=== PATIENT | male | born 2000 | race Hispanic/Latino ===

== ENCOUNTER 2025-03-30 01:42 | Emergency (ER) | payer OTHER ==
[~2025-03-30] VITALS: Ht 170.2 cm; Wt 86.4 kg
[2025-03-30 02:14] LABS: VENOUS BASE EXCESS -1.9 (-2.0-2.0); VENOUS HCO3 23.5 MMOL/L (23.0-27.0); VENOUS O2 SATURATION 93.6 % (60.0-80.0); VENOUS PARTIAL PRESSURE CO2 42.3 mmHg (38.0-50.0); VENOUS PARTIAL PRESSURE O2 69.9 mmHg (30.0-50.0); VENOUS PH 7.362 UNITS (7.330-7.430); VENOUS STANDARD HCO3 22.8 MMOL/L; VENOUS TOTAL CO2 24.8 MMOL/L (24.0-28.0)
[2025-03-30 02:21] LABS: BASO # 0.1 10^3/uL (0.0-0.2); BASO % 0.5 % (0.0-1.0); EOS # 0.2 10^3/uL (0.0-0.5); EOS % 2.5 % (0.0-3.0); LYMPH # 2.2 10^3/uL (1.5-5.0); LYMPH % 22.3 % (24.0-44.0); MONO # 0.7 10^3/uL (0.0-0.8); MONO % 7.4 % (2.0-8.0); NEUTROPHILS # 6.4 10^3/uL (1.5-8.5); NEUTROPHILS % 67.0 % (36.0-66.0); PLATELET COUNT, AUTOMATED 326 10^3/uL (150-450)
[2025-03-30 02:37] LABS: PHENCYCLIDINE URINE NEGATIVE (NEGATIVE)
[2025-03-30 02:38] LABS: AMPHETAMINES LEVEL URINE NEGATIVE (NEGATIVE); BARBITURATES URINE NEGATIVE (NEGATIVE); BENZODIAZEPINES URINE NEGATIVE (NEGATIVE); CANNABINOIDS URINE NEGATIVE (NEGATIVE); COCAINE METABOLITE URINE NEGATIVE (NEGATIVE); METHADONE URINE NEGATIVE (NEGATIVE); OPIATES URINE NEGATIVE (NEGATIVE)
[2025-03-30 02:39] LABS: ETHYL ALCOHOL (ETHANOL) 0.063 % (0.000-0.010)
[2025-03-30 02:42] LABS: ALT/SGPT 31 U/L (7.0-40); AST/SGOT 27 U/L (<34); CALCIUM LEVEL 9.1 MG/DL (8.5-10.1); CARBON DIOXIDE LEVEL 24 MMOL/L (20-31); CHLORIDE LEVEL 105 MMOL/L (98-107); CREATININE FOR GFR 0.79 MG/DL (0.70-1.30); GLOMERULAR FILTRATION RATE > 90.0 (>60); MAGNESIUM LEVEL 2.0 MG/DL (1.8-2.4); PHOSPHORUS LEVEL 3.3 MG/DL (2.5-4.9); POTASSIUM SERUM 3.9 MMOL/L (3.5-5.1); SODIUM LEVEL 140 MMOL/L (136-145)
[2025-03-30 07:00] VITALS: BP 107/50; O2SAT 98
[2025-03-30 07:05] VITALS: TEMP 98
== END 2025-03-30 07:43 | disposition home or self-care (01) ==
LOC: M ED 01:42
DX: R56.9 Unspecified convulsions (principal); F10.129 Alcohol abuse with intoxication, unspecified

== ENCOUNTER 2025-04-16 01:22 | Emergency (ER) | payer OTHER ==
[2025-04-16] MEDS: ACETAMINOPHEN 500 MG TAB PO ONE (06:45)
[2025-04-16] MEDS: KETOROLAC 60 MG/2 ML VIAL IM ONE (06:45)
[2025-04-16 09:32] VITALS: BP 134/84; TEMP 97.3; O2SAT 98
== END 2025-04-16 09:37 | disposition home or self-care (01) ==
LOC: M ED 01:22
DX: S43.402A Unspecified sprain of left shoulder joint, initial encounter (principal); S63.522A Sprain of radiocarpal joint of left wrist, initial encounter; S60.222A Contusion of left hand, initial encounter; S60.212A Contusion of left wrist, initial encounter; W22.8XXA Striking against or struck by other objects, initial encounter; Y92.89 Other specified places as the place of occurrence of the external cause; Y93.89 Activity, other specified; Y99.1 Military activity
CPT/HCPCS: 73090; 73110; 73130; 93971; 96372; 99284; J1885